=== PATIENT | female | born 1955 | race Caucasian/White ===

== ENCOUNTER 2017-07-07 07:00 | Emergency (ER) | payer OTHER, SELFPAY ==
[2017-07-07 07:01] VITALS: BP 148/89; PULSE 104; RESP 18; TEMP 36.6; O2SAT 100; BMI 20.9
[2017-07-07 07:06] VITALS: PULSE 106; RESP 26; O2SAT 100
[2017-07-07] MEDS: LORazepam 2 MG/ML Syringe 0.5 MG IV (07:28)
[2017-07-07 07:32] LABS: Absolute Lymphocyte Count 1.58 X10^3/ul (0.83-4.51); Absolute Neutrophil Count 5.5 X10^3/uL (2.0-7.7); Basophil# 0.01 X10^3/uL; Basophil% 0.1 % (0-1); Eosinophil# 0.01 X10^3/uL; Eosinophils% 0.1 % (0-5); Hematocrit 43.3 % (37-47); Hemoglobin 14.6 g/dl (12.0-15.0); Lymphocyte # 1.58 X10^3/ul (4.0); Lymphocyte % 19.8 % (19-41); Mean Corp Hgb Conc 33.7 g/gl (32-36); Mean Corpuscular Hgb 31.9 pg (27.0-32.0); Mean Corpuscular Volume 94.7 fL (81-99); Monocyte# 0.82 X10^3/uL; Monocyte% 10.3 % (0-10); Neutrophil # 5.54 X10^3/uL (2.7-7.7); Neutrophil % 69.6 % (47-70); Platelet Count 293 K/mm3 (150-450); RBC Distribution Width CV 12.4 % (11.6-14.6); RBC Distribution Width SD 42.6 fl (35.1-43.9); Red Blood Count 4.57 M/mm3 (4.2-5.4)
[2017-07-07 07:37] LABS: Anion Gap 9 (5-15); BUN 8 mg/dL (7-18); BUN/Creat Ratio 9.7 RATIO (10-20); Calcium,Total 9.9 mg/dL (8.5-10.1); Chloride 99 mmol/L (98-107); Creatinine, Serum 0.82 mg/dL (0.55-1.02); EST Glomerular Filtration Rate 75 mL/min (>60); Est Glom Filt Rate - Afr Amer 90 mL/min (>60); Estimated Creatinine Clearance 64.83 ml/min; Glucose 114 mg/dL (74-106); POSITIVE COUNT NO; POSITIVE DIFFERENTIAL NO; POSITIVE MORPHOLOGY NO; Potassium 3.5 mmol/L (3.5-5.1); Sodium Level 137 mmol/L (136-145)
[2017-07-07 08:46] LABS: Amphetamine Urine VISTA NEGATIVE (<1000 ng/mL); Barbiturate Urine VISTA NEGATIVE (< 200 ng/mL); Benzodiazepine Urine VISTA NEGATIVE (< 200 ng/mL); Cocaine Urine VISTA NEGATIVE (< 300 ng/mL); Ecstacy Urine VISTA NEGATIVE (< 500 ng/mL); Methadone Urine VISTA NEGATIVE (< 300 ng/mL); PCP Urine VISTA NEGATIVE (< 25 ng/mL); THC Urine VISTA NEGATIVE (< 50 ng/mL); Vista UDS pH Range 7
--- NOTE | 2017-07-07 08:55 | ED.DCSUM_ITS ---
- ER Visit Summary Date of Service: 07/07/17 Chief Complaint: I cannot deal with it any longer History of Present Illness: The patient is a 61 F who presents from work via ambulance because of having a nervous breakdown . Patient states she cannot handle living longer. She states she is cared for everyone and is now unable to make a decision. 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 She states she is forgetting things and does not know her route or name of her students. She states she cannot care for her mother any longer. Her mother is in assisted living. She states she not know how her daughter handles it . She has never seen a counselor. She states that her of cancer in 2013. Her son of an overdose in 2013 and apparently her father in 2013 as well. She never spoke with a counselor. She states she cannot talk to anyone. She states that words will not come out . She believes she has early dementia. She denies any fever, chills night sweats. She denies any ocular, visual auditory symptoms. She denies any trouble with speech or swallowing. She denies any cardiac respiratory symptoms. She does complain of slight nausea and feels the pressure in her abdomen from all the stress. She denies any urologic symptoms. She denies any neurologic symptoms. She denies suicidal homicidal thoughts. She does admit to depression. She states she lives alone. She recently visited her brother in [place]. She does admit to drinking on a regular basis. Her beverage of choice is wine. She states she had one glass of wine last evening. Physical Examination: Patient is rambling with slight pressured speech. Blood pressure is elevated 148/89 and heart rate is 106. Respiratory rate was documented to be 26. She appears in no respiratory distress. Head is atraumatic normocephalic. Pupils are equal round reactive. Extraocular muscles are intact. TMs are pearly white with landmarks noted. Nares patent with no drainage. Posterior pharynx without erythema or exudate. Uvula is midline. There is no dysphonia or dysphasia. Trachea is midline. There is no stridor with auscultation of the neck. Heart is regular without murmur, gallop or rub. S1 and S2 are normal. Lungs are clear to auscultation with good movement of air bilaterally. Abdomen is soft and nontender. There is no guarding or peritoneal findings. There is no palpable pulsatile mass. There is no abdominal bruit. Rocha sign is negative. Negative Rovsing sign. There is no evidence of inguinal or umbilical hernia. Patient is alert and oriented ? 3. Motor is 5 over 5. Sensory is intact. DTRs are symmetric with no clonus or Babinski sign. Cranial 2 through 12 are intact. Cerebellar testing is normal. Patient appears anxious. In spite of her claims that she is unable to speak or think clearly she answers questions appropriately. It is my opinion that she is referring to her inability to tell others that she is under stress and feels overwhelmed. Test Results: Screening blood work was obtained and her CBC and BMP are essentially unremarkable other than a glucose of 114. tox screen is negative. Alcohol is 12 which one would expect to be 0 if she only had one glass of wine last evening. Emergency Department Course and Treatment: Counseling center was contacted. In my opinion patient needs at the minimum urgent outpatient therapy. She was prescribed Prozac by her primary care physician Dr. Urias on June 07. She was treated with Ativan 0.5 mg IV push in the emergency department. She reports slight improvement. Treatment Plan: Crisis interview and help with discharge planning versus admission Disposition: Ray from the counseling center did see Ms. Coyle. Arrangements are made for close outpatient follow-up. She was discharged with prescription for anti-insulin A. Impression: Depression 2. Anxiety reaction This note was generated with [employer] dictation software. It may contain incorrect words, spelling, and punctuation that were not noted in review of the chart prior to signing ED Disposition - Plan for ED Patient: Disposition: Home or Assisted Living Chief Complaint: Anxiety Instructions: ED Stress React, ED Depression Prescriptions: Clorazepate [Tranxene] 3.75 mg PO TID #90 tab Referrals: Juanjo Urias MD [Primary Care Provider] - [facility] appointment Counseling,Center [GROUP OF PHYSICIANS] - [facility] appointment
[2017-07-07 09:04] VITALS: RESP 14
--- NOTE | 2017-07-07 09:54 | ED.RN ---
TALKED TO SANKET AT THE [facility]. I LEFT AT MESSAGE AT 7:15 AND THEY WERE NOT GIVEN THE MESSAGE. HE SAID HE WOULD COME RIGHT OVER.
--- NOTE | 2017-07-07 10:30 | ED.RN ---
CRISIS IS IN THE ED.
[2017-07-07 12:32] VITALS: BP 121/74; PULSE 56; RESP 15; O2SAT 98
== END 2017-07-07 12:33 | disposition home or self-care (01) ==
PROVIDERS: Emergency Provider Emergency Medicine; Family Provider Family Medicine; PCP Family Medicine
DX: F41.1 Generalized anxiety disorder (principal); F32.9 Major depressive disorder, single episode, unspecified; Z79.899 Other long term (current) drug therapy
CPT/HCPCS: 80048; 80307; 80320; 85025; 96374; 99285; A4216; G0480

== ENCOUNTER 2017-07-15 10:07 | Emergency (ER) | payer OTHER, SELFPAY ==
[2017-07-15 10:09] VITALS: BP 139/81; PULSE 82; RESP 16; TEMP 37.2; O2SAT 99; BMI 20.5
--- NOTE | 2017-07-15 10:21 | CT_ITS ---
STUDY: CT BRAIN WITHOUT CONTRAST REASON FOR EXAM: Female, 61 years old. Dementia. Increasing anxiety. RADIATION DOSAGE (If Supplied By Facility): CTDIvol = ( 60.81 ) mGy, DLP = ( 1044.28 ) mGycm TECHNIQUE: Transaxial CT imaging of the brain was performed without administration of intravenous contrast material. Individualized dose optimization techniques were used for this CT. COMPARISON: None. FINDINGS: Normal soft tissue structures. Normal calvarium. Normal size ventricles and extra-axial spaces for the patient's age. Normal white matter tracts of the cerebral hemispheres. Normal basal ganglia and thalami. Normal brainstem. Normal cerebellum. There is no intracranial hemorrhage. There are no findings of an acute ischemic infarction. Normal visualized paranasal sinuses. CT/Brain/Head without Contrast IMPRESSION: Normal unenhanced CT scan of the brain. Electronically Signed: Kirk Ac MD at 11:30 EDT Tel [phone], Service support ,
--- NOTE | 2017-07-15 10:21 | EKG12_ITS ---
Test Reason : DYSRHYTHMIA Blood Pressure : / mmHG Vent. Rate : 083 BPM Atrial Rate : 083 BPM P-R Int : 126 ms QRS Dur : 084 ms QT Int : 398 ms P-R-T Axes : 082 070 074 degrees QTc Int : 467 ms Normal sinus rhythm Normal ECG Confirmed by KAITY KIM, MARIBELL ([id number]), development editor ANNA MUNOZ ([id number] on 07/20/2017 2:06:56 PM Referred By: EUN Confirmed By:MARIBELL BRICENO MD
--- NOTE | 2017-07-15 10:24 | ED.DCSUM_ITS ---
- ER Visit Summary Date of Service: 07/15/17 Chief Complaint: Increasing depression, inability to function History of Present Illness: The patient is a 61 F history of anxiety disorder presents to the emergency department with increasing depression and inability to function. Patient was seen here just about a week ago. At that time, she had overwhelming depression and anxiety. She was medically evaluated and seen by crisis. It was thought that it may be secondary to her antidepressants. The patient had her medications changed from Celexa to Lexapro. She was also prescribed oral antianxiety medications. She states since this time, her symptoms actually worsened. She states that she cannot concentrate. She has no interest in daily activities. States that she wanders around her house and walks in circles. She cannot even complete daily tasks because of her overwhelming depression. She has been under a significant amount of stress. She is worried she is going lose her job. Her son of an overdose. Her also . She is taking care of her sick mother. She states it is just all hitting me at the same time. I asked her if she had thoughts of suicide, and she states if I just went to sleep and never woke up that would be fine but states I would never be able to kill myself because my family depends on me. Physical Examination: Vital signs reviewed General: Well-nourished, well-developed Head: Normocephalic, atraumatic Eyes: Pupils equal and reactive, extraocular muscles intact Neck, supple, no lymphadenopathy Heart: Regular rate and rhythm Respiratory: No distress, clear bilaterally Abdomen: Soft, nontender, nondistended, no peritoneal signs Back: Nontender Extremities: Nontender, no edema, no cords Skin: Normal color no rash Neuro: Alert and oriented, no focal or lateralizing deficits Test Results: [] Emergency Department Course and Treatment: Patient presents to the emergency department with what seems to be overwhelming depression. She is unable to complete even basic tasks of daily living. I feel that this is a combination of multiple processes. I did obtain a head CT that she did not have this in her prior evaluation. There is no evidence of stroke, tumor, or mass-effect. She has a normal neurologic examination. Her labs are unremarkable. Her tox is positive for benzodiazepines with the patient was prescribed. I do feel that this patient is going to need crisis evaluation given her severe depression and the fact that it is interfering with her ability to care for herself. Patient was observed. She was seen and evaluated by the counseling center. After long discussion with patient and her daughter, it was felt that outpatient therapy would be the most appropriate. The patient is not suicidal. She is increasingly depressed, was just changed on her medications. She was counseled that this will take time. She was also counseled that if her symptoms change in any way, she begins to have suicidal thoughts or thoughts of self-harm she needs to return immediately. The patient will be discharged home with outpatient follow-up. Treatment Plan: [] Disposition: Pending Impression: 1. Acute depression This note was generated with [employer] dictation software. It may contain incorrect words, spelling, and punctuation that were not noted in review of the chart prior to signing ED Disposition - Plan for ED Patient: Disposition: Home or Assisted Living Chief Complaint: Mental Health Instructions: ED Depression Referrals: Juanjo Urias MD [Primary Care Provider] -
[2017-07-15 10:49] LABS: Absolute Lymphocyte Count 1.01 X10^3/ul (0.83-4.51); Absolute Neutrophil Count 5.9 X10^3/uL (2.0-7.7); Basophil# 0.01 X10^3/uL; Basophil% 0.1 % (0-1); Eosinophil# 0.03 X10^3/uL; Eosinophils% 0.4 % (0-5); Hematocrit 42.1 % (37-47); Hemoglobin 13.6 g/dl (12.0-15.0); Lymphocyte # 1.01 X10^3/ul (4.0); Lymphocyte % 13.3 % (19-41); Mean Corp Hgb Conc 32.3 g/gl (32-36); Mean Corpuscular Hgb 31.4 pg (27.0-32.0); Mean Corpuscular Volume 97.2 fL (81-99); Mean Platelet Vol. 8.8 fl (6.2-12.0); Monocyte# 0.64 X10^3/uL; Monocyte% 8.4 % (0-10); Neutrophil # 5.92 X10^3/uL (2.7-7.7); Neutrophil % 77.8 % (47-70); POSITIVE COUNT NO; POSITIVE DIFFERENTIAL NO; POSITIVE MORPHOLOGY NO; Platelet Count 262 K/mm3 (150-450); RBC Distribution Width CV 12.9 % (11.6-14.6); Red Blood Count 4.33 M/mm3 (4.2-5.4); White Blood Count 7.6 K/mm3 (4.4-11.0)
[2017-07-15 11:17] VITALS: RESP 18
[2017-07-15 11:24] LABS: Amphetamine Urine VISTA NEGATIVE (<1000 ng/mL); Barbiturate Urine VISTA NEGATIVE (< 200 ng/mL); Benzodiazepine Urine VISTA POSITIVE (< 200 ng/mL); Cocaine Urine VISTA NEGATIVE (< 300 ng/mL); Ecstacy Urine VISTA NEGATIVE (< 500 ng/mL); Methadone Urine VISTA NEGATIVE (< 300 ng/mL); PCP Urine VISTA NEGATIVE (< 25 ng/mL); THC Urine VISTA NEGATIVE (< 50 ng/mL); Vista UDS pH Range 6
[2017-07-15 11:37] LABS: Anion Gap 8 (5-15); BUN 10 mg/dL (7-18); BUN/Creat Ratio 17.5 RATIO (10-20); Calcium,Total 7.8 mg/dL (8.5-10.1); Chloride 106 mmol/L (98-107); Creatinine, Serum 0.57 mg/dL (0.55-1.02); EST Glomerular Filtration Rate 114 mL/min (>60); Est Glom Filt Rate - Afr Amer 138 mL/min (>60); Estimated Creatinine Clearance 88.52 ml/min; Glucose 81 mg/dL (74-106); Potassium 3.8 mmol/L (3.5-5.1); Sodium Level 140 mmol/L (136-145)
[2017-07-15 12:14] VITALS: BP 138/79; PULSE 85; RESP 22; O2SAT 97
--- NOTE | 2017-07-15 12:18 | ED.RN ---
DANIEL WITH CRISIS SHOULD BE HERE SOON TO EVAL PT PER [facility]SELING [facility]
--- NOTE | 2017-07-15 12:58 | ED.RN ---
CRISIS IS HERE TO EVAL PT
[2017-07-15 14:38] VITALS: RESP 18
[2017-07-15 15:00] VITALS: BP 158/91; PULSE 89; RESP 16; O2SAT 97
== END 2017-07-15 15:02 | disposition home or self-care (01) ==
LOC: ED 11:04
PROVIDERS: Emergency Provider Emergency Medicine; Family Provider Family Medicine; PCP Family Medicine
DX: F32.9 Major depressive disorder, single episode, unspecified (principal); F41.9 Anxiety disorder, unspecified; Z79.899 Other long term (current) drug therapy
CPT/HCPCS: 36415; 70450; 80048; 80307; 80320; 85025; 93005; 99283; A4216; G0480

== ENCOUNTER 2017-07-19 08:30 | Outpatient (RCR) | payer OTHER, SELFPAY ==
--- NOTE | 2017-07-19 11:03 | BH.MDN ---
Multi-Disciplinary Note - Note 30-min Individual Time Started:: 10:10 Date: 07/19/17 Purpose of session/treatment goals addressed:: The purpose of this session was to address client's current stressors and anxiety about being in the program. Another purpose was to review healthy coping skills to reduce anxiety and begin to problem solve strategies for client to manage symptoms and reduce rumination/feelings of guilt while in the group setting. Other topics included: positive self-talk and breathing strategies. Eye Contact:: Good Motor Activity:: Restless, Other - Client having a difficult time sitting still; often wringing hands or or shaking legs Appearance:: Casual Speech:: Other - circular;circumstantial Mood:: Anxious, Depressed Affect:: Constricted Thoughts:: Racing, Circular, Other - preoccupied, No evidence of hallucinations/delusions noted Staff Interventions:: Therapist provided a safe environment for CLient to discuss current anxieties and concerns associated with attending IOP program and completing ADL's. Used open-ended questions, reflective listening and empathic responses as client shared current symptoms and stressors. Guided CLient in applying deep breathing techniques to calm and helped client problem-solve coping skills and self-talk messages she may apply to reduce clients anxiety while in the group setting. Therapist used strengths-perspective to help client reflect on progress in asking for help and increase confidence in her ability to remain in the group setting. Client Response:: Client responded well to session and was open to meeting with this therapist following progress group as client was expressing panic and increased anxiety symptoms. CLient shared feeling overwhelmed by the treatment environment and expressed uncertainty regarding her ability to complete the remainder of the groups for this date. She indicated several times I just want to turn around and run and went on to share this isn't me, I'm not the one that breaks down I'm the one who takes care of everyone. CLient clarified that she has been experiencing increased rumination, guilt, frustration, and depression surrounding increased levels of anxiety over the past week. 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 CLient appears to have fair insight and was able to process that it is unsustainable for someone to continue to care for others without also taking time to tend to their own needs. Client notes that in the last several weeks she has been dealing with worsening anxiety and depression, as well as daily panic attacks which have impacted clients ability to focus or complete ADL's. She reposnded well to reminding herself to breathe and stating i can make it through this throughout session. Client had difficulties focusing on breathing or calming strategies as she had trouble in maintaining attention, continued rumination, and difficulty challenging use of distorted thinking patterns. Client was able to calm enough to return to the group setting but continues to express ambivalence towards remaining in the IOP program as she is worried she is taking too much time away from her other responsibilities; however, is able to identify that if she were not in the program she would likely be unable to calm herself or focus enough to complete any additional tasks. Client indicates wanting to work on improving ability to manage mental health symptoms and decreasing levels of anxiety so that she is able to return to work and act as a support for her family. Risks/Concerns:: Client denies suicidal ideation, plan, and intent as of 07/19/17. Client reports her Daughter and grandchildren as main supports and motivations to continue trying to manage mental health sx. Client reports belief she can maintain safety and shared she feels able to contact crisis should she begin to feel unsafe. Progress Toward Goals/Plan:: Client's first day of IOP therefore no progress to be documented. Client reports ambivalence to engage in the treatment process as she indicates increased anxiety and guilt associated with being off work and thinking about all the other responsibilities she is not tending to while in the treatment setting. Client able to identify a strong support system; however, indicates increased belief that they are growing fed up with her anxiety and fears she is going to lose everyone. Client recommended to continue IOP to promote mood stability, decrease anxiety, and begin to develop emotional regulation skills. Time Stopped:: 10:45
--- NOTE | 2017-07-19 12:19 | BH.MDN_ITS ---
Multi-Disciplinary Note - Note 30-min Individual Time Started:: 10:10 Date: 07/19/17 Purpose of session/treatment goals addressed:: The purpose of this session was to address client's current stressors and anxiety about being in the program. Another purpose was to review healthy coping skills to reduce anxiety and begin to problem solve strategies for client to manage symptoms and reduce rumination/ feelings of guilt while in the group setting. Other topics included: positive self-talk and breathing strategies. Eye Contact:: Good Motor Activity:: Restless, Other - Client having a difficult time sitting still ; often wringing hands or or shaking legs Appearance:: Casual Speech:: Other - circular;circumstantial Mood:: Anxious, Depressed Affect:: Constricted Thoughts:: Racing, Circular, Other - preoccupied, No evidence of hallucinations/ delusions noted Staff Interventions:: Therapist provided a safe environment for CLient to discuss current anxieties and concerns associated with attending IOP program and completing ADL's. Used open-ended questions, reflective listening and empathic responses as client shared current symptoms and stressors. Guided CLient in applying deep breathing techniques to calm and helped client problem- solve coping skills and self-talk messages she may apply to reduce client?s anxiety while in the group setting. Therapist used strengths-perspective to help client reflect on progress in asking for help and increase confidence in her ability to remain in the group setting. Client Response:: Client responded well to session and was open to meeting with this therapist following progress group as client was expressing panic and increased anxiety symptoms. CLient shared feeling overwhelmed by the treatment environment and expressed uncertainty regarding her ability to complete the remainder of the groups for this date. She indicated several times I just want to turn around and run and went on to share this isn't me, I'm not the one that breaks down I'm the one who takes care of everyone. CLient clarified that she has been experiencing increased rumination, guilt, frustration, and depression surrounding increased levels of anxiety over the past week. 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 CLient appears to have fair insight and was able to process that it is unsustainable for someone to continue to care for others without also taking time to tend to their own needs. Client notes that in the last several weeks she has been dealing with worsening anxiety and depression, as well as daily panic attacks which have impacted clients ability to focus or complete ADL's. She reposnded well to reminding herself to breathe and stating i can make it through this throughout session. Client had difficulties focusing on breathing or calming strategies as she had trouble in maintaining attention, continued rumination, and difficulty challenging use of distorted thinking patterns. Client was able to calm enough to return to the group setting but continues to express ambivalence towards remaining in the IOP program as she is worried she is taking too much time away from her other responsibilities; however, is able to identify that if she were not in the program she would likely be unable to calm herself or focus enough to complete any additional tasks. Client indicates wanting to work on improving ability to manage mental health symptoms and decreasing levels of anxiety so that she is able to return to work and act as a support for her family. Risks/Concerns:: Client denies suicidal ideation, plan, and intent as of . Client reports her Daughter and grandchildren as main supports and motivations to continue trying to manage mental health sx. Client reports belief she can maintain safety and shared she feels able to contact crisis should she begin to feel unsafe. Progress Toward Goals/Plan:: Client's first day of IOP therefore no progress to be documented. Client reports ambivalence to engage in the treatment process as she indicates increased anxiety and guilt associated with being off work and thinking about all the other responsibilities she is not tending to while in the treatment setting. Client able to identify a strong support system; however , indicates increased belief that they are growing fed up with her anxiety and fears she is going to lose everyone. Client recommended to continue IOP to promote mood stability, decrease anxiety, and begin to develop emotional regulation skills. Time Stopped:: 10:45
--- NOTE | 2017-07-19 12:21 | BH.SGPN_ITS ---
Service Group Progress Note - Session Psychotherapy Session #1 Date Open:: 07/19/17 Time Started:: 09:20 Time Stopped:: 10:01 Targeted Problem #:: 1 Type of Group:: Process - 7 participants. Goal of Group:: The goal of group was to check-in on client?s mood, stressors and positives, review homework and introduce the topic of the day. Client Response/Progress/Benefit:: Client first day in IOP program and is adjusting to the treatment setting. Client did well to listen as others shared their thoughts, feelings, and progress. She shared feeling overwhelmed by depression and anxiety. Client discussed experiencing three siginificant losses in the last three years and is still struggling to cope with that. She went on to reflect that she has been the one who has been trying to take care of everyone else and can no longer manage the responsibility and stress of doing so. CLient shared feeling as though she is no longer able to even take care of her own needs as her anxiety has increased to the point that she is no longer functioning at baseline or able to complete daily tasks. Client was receptive of the group support and appeared to benefit from the supportive environment of a group setting. Client would benefit from continuing in IOP in order to maintain stability and begin to reduce sx of anxiety by developing healthy emotion regulation and stress management skills. Eye Contact:: Fair Motor Activity:: Restless Appearance:: Casual Speech:: Other - circumstantial Mood:: Anxious, Depressed Affect:: Constricted Thoughts:: Racing, No evidence of hallucinations/delusions noted Staff Interventions:: Therapist used open-ended questions to elicit information about client's current stressors and mood state. Therapist was supportive by using active listening and reflection. Therapist utilized a quote related to confidence as an aid in introducing the topic of the day and facilitated discussion of quote.
--- NOTE | 2017-07-20 08:23 | BH.DS_ITS ---
Discharge Summary - Demographics Date of Admission:: 07/20/17 Discharge Date: 07/21/17 Presenting Problems at Admission:: Pt is a 61 year old female. No psychiatric treatment hx. Referred by PCP Shahida Coley as well as [facility] and [facility] due to overwhelming anxiety and depression. Presented to the [facility] ER on two occasions in the past 2 weeks for anxiety. On both occasions crisis assessment was completed. According to pt inpatient placement was discussed on voluntary basis however she refused. Appointment was also sent up with traditional counseling [facility] and she failed to follow through. Reports worsening depression and anxiety for the past 3 weeks which has led to being unable to complete ADLs, focus, or function at work. Has been off work for 2 weeks. Unable to complete simple tasks like shopping, preparing meals, and managing her house. Extremely restless and reports pacing throughout the day. Endorses decreased appetite (lost 5lbs in 3weeks), decreased sleep (3 hours a night), increased energy, no motivation, isolative behaviors, hopelessness, no pleasure in activities, and worthlessness. Unable to making decisions, leave the house alone, or be around people. Reports that she continues to struggle with of (tumor) and son (OD). Medication interventions are been unsuccessful. Family is frustrated as pt refuses all treatment interventions. Denies active suicidal ideations, plan, or intent. No hx of attempts. Denies HI or psychosis. Denies current alcohol abuse. Admits to quitting cold turkey over a week ago. Reports that she would drink on average 3- 4 glasses of wine. Pt is hesistant to enter treatment as she does not believe it will be effective however is agreeable mainly from family pressure and desire to improve functioning to return to work. Discharge Diagnoses:: Generalized Anxiety Disorder Reason for Discharge:: Discharged at pt's request. Only attended one day of IOP. Vague on reasons except to say to she beleives she was a distraction to other patients because she was too emotional. - Treatment Progress During Treatment & Response: No progress noted. Pt was encouraged to remain in the program as this level of care is most likely to be beneficial. Poor response to any treatment interventions. At this point she has been to the ER for anxiety twice in the past 2 weeks, has had two mental health crisis assessments in the ER, has refused voluntary placement on inpatient psychiatric unit, failed to follow throughout with traditional outpatient appointment at [facility], refused PHP level of care, and only attended one day of IOP level of care. She was encourged to make a follow-up appointment with counseling and psychiatry. Adamantly denies any suicidal ideations, plan, or intent. No hx of attempts. Contracts for safety. Does not present as imminent danger to self due to no suicidal ideations, plan, or intent. Anxiety is interfering with ADLS, daily functioning, work, and familial responsibilities. Issues Still to be Addressed:: Anxiety, panic attacks, depression, grief reactions, and inability to function. Pt would benefit from psychiatric evaluation and medication managment. Discharge Recommendations/Instructions:: Recommended to reconsider voluntary inpatient psychiatric placement however pt admantly refused. Again refuses PHP and IOP level of care. Encouraged her to set up appointment with psychiatrist for evaluation, however most psychiatrists are booking two months out which will likely result in further decompensation. Encouraged her to call crisis or return to the ER if symptoms become unmanageble. Discharge Handout: Complete Discharge Handout with client on aftercare options and continuity of care.
--- NOTE | 2017-07-20 08:23 | BH.COMM ---
Communication Note - Communication with Client Communication Note: Pt called in stating that she does not want to continue in the program stating that she is too emotional and would cause the other patients to be uncomfortable. Refer to discharge summary for more information. She will be discharged.
== END 2017-07-20 09:35 | disposition home or self-care (01) ==
LOC: BHIOP 08:30
PROVIDERS: Family Provider Family Medicine; PCP Family Medicine; Visit Provider Psychiatry & Neurology Psychiatry
DX: F41.9 Anxiety disorder, unspecified (principal)
CPT/HCPCS: H0035; 90832; 90853